=== PATIENT | male | born 1945 | race Caucasian/White ===

== ENCOUNTER → 2016-12-08 | Outpatient (CLI) | payer BC, MEDICARE | END | disposition home or self-care (01) | LOC: GMAB 09:19 | PROVIDERS: ATTEND Family Medicine | DX: N18.3 Chronic kidney disease, stage 3 (moderate) (principal) ==

== ENCOUNTER → 2016-12-20 | Outpatient (CLI) | payer BC, MEDICARE | END | disposition home or self-care (01) | LOC: LAB.O 07:15 | PROVIDERS: ATTEND Internal Medicine Cardiovascular Disease | DX: I25.10 Atherosclerotic heart disease of native coronary artery without angina pectoris (principal); E78.5 Hyperlipidemia, unspecified ==

== ENCOUNTER → 2017-01-31 | Outpatient (CLI) | payer BC, MEDICARE | LOC: GMAB 11:16 | PROVIDERS: ATTEND Family Medicine | DX: Z00.00 Encounter for general adult medical examination without abnormal findings (principal) ==

== ENCOUNTER → 2017-06-17 | Outpatient (CLI) | payer BC, MEDICARE | END | disposition home or self-care (01) | LOC: LAB.O 07:18 | PROVIDERS: ATTEND Internal Medicine Nephrology | DX: N18.3 Chronic kidney disease, stage 3 (moderate) (principal) ==

== ENCOUNTER → 2017-10-06 | Outpatient (CLI) | payer BC, MEDICARE | END | disposition home or self-care (01) | LOC: LAB.O 08:33 | PROVIDERS: ATTEND Internal Medicine Nephrology | DX: N18.3 Chronic kidney disease, stage 3 (moderate) (principal) ==

== ENCOUNTER → 2018-02-09 | Outpatient (CLI) | payer BC, MEDICARE | LOC: LAB.O 07:38 | PROVIDERS: ATTEND Internal Medicine Nephrology | DX: N18.3 Chronic kidney disease, stage 3 (moderate) (principal) ==

== ENCOUNTER → 2018-08-10 | Outpatient (CLI) | payer BC, MEDICARE | LOC: LAB.O 07:26 | PROVIDERS: ATTEND Internal Medicine Nephrology | DX: N18.4 Chronic kidney disease, stage 4 (severe) (principal) ==

== ENCOUNTER → 2018-08-10 | Outpatient (CLI) | payer BC, MEDICARE | LOC: LAB.O 12:56 | PROVIDERS: ATTEND Internal Medicine Cardiovascular Disease | DX: E78.2 Mixed hyperlipidemia (principal); E78.5 Hyperlipidemia, unspecified; I10 Essential (primary) hypertension; I25.10 Atherosclerotic heart disease of native coronary artery without angina pectoris; I35.0 Nonrheumatic aortic (valve) stenosis; I48.0 Paroxysmal atrial fibrillation; I48.2 Chronic atrial fibrillation; I48.91 Unspecified atrial fibrillation; I65.21 Occlusion and stenosis of right carotid artery; I65.29 Occlusion and stenosis of unspecified carotid artery; I73.9 Peripheral vascular disease, unspecified; I77.9 Disorder of arteries and arterioles, unspecified; R00.1 Bradycardia, unspecified; R00.2 Palpitations; R06.09 Other forms of dyspnea; Z68.29 Body mass index [BMI] 29.0-29.9, adult; Z95.0 Presence of cardiac pacemaker; Z95.810 Presence of automatic (implantable) cardiac defibrillator ==

== ENCOUNTER → 2018-09-04 | Outpatient (CLI) | payer BC, MEDICARE | LOC: LAB.O 10:21 | PROVIDERS: ATTEND Nurse Practitioner Acute Care | DX: E78.2 Mixed hyperlipidemia (principal); E78.5 Hyperlipidemia, unspecified; I10 Essential (primary) hypertension; I35.0 Nonrheumatic aortic (valve) stenosis; I48.0 Paroxysmal atrial fibrillation; I48.2 Chronic atrial fibrillation; I65.21 Occlusion and stenosis of right carotid artery; I73.9 Peripheral vascular disease, unspecified ==

== ENCOUNTER → 2018-09-27 | Outpatient (CLI) | payer BC, MEDICARE ==
--- NOTE | 2018-09-28 07:12 | CT ---
EXAM DESCRIPTION: Thoracic Spine CLINICAL HISTORY: 73 years, Male, RADICULOPATHY COMPARISON: Chest radiograph July 29, 2016 TECHNIQUE: CT of the thoracic spine was performed without IV contrast. This exam was performed according to our departmental dose-optimization program, which includes automated exposure control, adjustment of the mA and/or kV according to patient size and/or use of iterative reconstruction technique. FINDINGS: There is no vertebral body fracture or subluxation. Small anterior osteophyte is noted at multiple levels in the thoracic spine without disc space narrowing with facet joint hypertrophy. No central canal or neuroforaminal stenosis is seen in the level of the thoracic spine. Concentric disc bulging at L1-2 and L2-3 is noted without facet joint degeneration but probably results in at least mild bilateral neural foraminal stenosis. Emphysematous changes are present. There is a lobulated mass in the right lower lobe measuring just over 8 cm craniocaudal which abuts the posterior chest wall and is highly concerning for neoplasm. A second pleural-based nodule more posteriorly and inferiorly in the right lower lobe is only partially included on this exam. There is a solid mass in the right posterior abdominal wall just along the right side of the T12 body measuring 5.5 cm transverse by approximately 3 cm AP which results in partial destruction of the right 12th rib, also highly concerning for neoplasm. Incidentally noted is a 6 cm right renal cyst only partially visualized. IMPRESSION: Lobulated 8 cm right lower lobe mass with a smaller pleural-based nodule elsewhere in the right lower lobe only partially visualized, both highly suspicious for neoplasm. Biopsy is recommended. 5.5 cm mass involving the posterior right abdominal wall along the right side of the T12 body and right diaphragmatic hema resulting in partial destruction of the right 12th rib, also highly concerning for neoplasm and possibly explaining patient's symptoms. Emphysema. Mild degenerative changes at several levels in the thoracolumbar spine including considerable disc bulging at L1-2 and L2-3 resulting in mild bilateral neuroforaminal stenosis. The ordering physician was paged regarding these findings through the radiology director of medical services by me at the time of this dictation. Electronically signed by: Rashaad Saunders MD 09/28/2018 7:10 AM [employer]
== END ==
LOC: CT 14:01
PROVIDERS: ATTEND Family Medicine
DX: M51.26 Other intervertebral disc displacement, lumbar region (principal); R91.8 Other nonspecific abnormal finding of lung field; J43.9 Emphysema, unspecified

== ENCOUNTER → 2018-10-05 | Outpatient (CLI) | payer BC, MEDICARE ==
--- NOTE | 2018-10-05 15:53 | CT ---
EXAM DESCRIPTION: Abdomen Biopsy CT : Computed Tomography. CLINICAL HISTORY: 73 years Male RIGHT PLEURAL AND RIGHT LOWER LOBE MASS. POSTERIOR RIGHT ABDOMINAL WALL MASS on prior thoracic spine CT scan. COMPARISON: CT scan thoracic spine 09/27/2018. CT-guided lung and pleural biopsy today. TECHNIQUE: Patient placed prone on CT table, head toward the gantry, oblique positioning with right side up. Posterior right abdominal wall mass localized on helical axial images 2.5 x 2.5 mm. Table position recorded and repeat images with wire localizer on the right flank. Skin marked and prepped with sterile solution, sterile drape and 1% Xylocaine local anesthetic. Repeat imaging to confirm position of skin needle. Skin dariela with #11 scalpel. 17-gauge 13 cm Bard trocar and cannula introduce 4 cm and images confirmed good position relative to the mass. Trocar removed and Bard 18-gauge by 15 cm 2 stage biopsy gun introduced into the mass. 1.5 cm notch. 4 almost complete core samples were obtained. Patient complained of back pain due to positioning. No significant hemorrhaging. Patient tolerated the procedure well with no immediate complications. Spiral-axial scans at 2.5 x 2.5 mm intervals through the abdomen And pelvis after the procedure. Patient kept in prone position. Coronal and sagittal 2.0 mm reconstructions. No IV or oral contrast. Total DLP: Less than 288 mGy - cm. This exam was performed according to our departmental dose-optimization program which includes automated exposure control, adjustment of the mA and/or kV according to patient size and/or use of iterative reconstruction technique; to reduce radiation dose to as low as reasonably achievable (ALARA). FINDINGS: Abdominal Wall/Back Soft Tissues: Soft tissue mass with long axis almost 5 cm abutting and possibly invading the lateral hema of the right hemidiaphragm. Mass also involving the basilar medial right lung and pleura, with superior extent less than 3 cm from the inferior extent of the right lung pleural mass also biopsied. Orthogonal dimension at the level of T12 vertebral body is 3.9 cm. Dimension perpendicular to the long axis of the lumbar spine is 4.1 cm. Radiolucent appearance of the right 12th rib head and proximal angle and appearance of cortical loss suggest invasion of the rib. The mass is also abutting a large cyst on the posterior right kidney. The mass may be invading right posterior paraspinal muscles, but not invading the T12 thoracic vertebral body. No calcifications in the mass. Upper Abdominal organs: Calcifications in the spleen. Small calcifications in the liver. Stomach not distended. Adrenal glands negative. Pancreas/Gallbladder/Ducts: Vascular calcifications abutting the pancreas. Gallbladder visualized. Normal caliber of the duct. Kidneys: Multiple cysts in the right kidney with some kidney cyst density between post 15 and +20. Smooth margins. Perinephric stranding appears physiologic with no fluid. 5 mm stone inferior collecting system along with a 4 mm stone at the same level. No obstruction. 3 mm calcification in the inferior collecting system of the left kidney. 2 cm radiodense cyst or mass [place] +41. Other larger cysts with typical fluid density. Minimal right perirenal fluid. Otherwise no fatty stranding or fascial thickening. No hydronephrosis on the left and no left hydroureter.. Mesentery: No free fluid or free air. Aorta: Atherosclerotic calcification throughout with no aneurysm. Small Bowel: Normal caliber with no air-fluid levels. Terminal Ileum/Cecum: Slight distention by gas. Appendix visualized. Normal density of surrounding fat. Colon: No obstruction. Small diverticula with no complications. Spine: Spondylosis at multiple levels with dextroscoliosis. Pelvic organs: Prostate gland abutting the seminal vesicles and urinary bladder. No fluid in the pelvis. IMPRESSION: 1. Mass extending from the inferior medial right pleura to the right hema of the hemidiaphragm and right posterior medial abdominal wall and paraspinal soft tissues. Probable invasion of the medial right 12th rib. Greatest diameter [address] guided percutaneous core needle biopsy of this mass. Please see above details. 2. No other masses seen on this noncontrast CT scan of the abdomen and pelvis. Lack of IV contrast limits the study. Minimal fluid in the inferior right pararenal space may be secondary to biopsy. Multiple cysts bilateral kidneys. One dense cyst inferior left kidney may contain milk of calcium with well-defined uniform margins. Bilateral intrarenal stones with no evidence of obstruction. Atherosclerotic changes in the abdominal aorta. Spondylosis. Advanced atherosclerotic disease of the aorta with no aneurysm. Minimal diverticulosis of the distal colon with no complications. Electronically signed by: Nicko Potts MD 10/05/2018 3:52 PM SENIOR ADVOCATE
--- NOTE | 2018-10-05 16:23 | CT ---
EXAM DESCRIPTION: Lung Biopsy CT : Computed Tomography. CLINICAL HISTORY: 73 years Male Low Back and Mid Back Pain Not Responding to Pain Management. Mass in the Right Medial Lower Lobe and Pleura and Mass in the Junction of the Pleura Diaphragm and Right Paraspinal Muscles of the Upper Abdomen Seen on Prior Thoracic CT Scan. COMPARISON: CT-guided biopsy of abdominal wall mass on this visit. CT scan of the thoracic spine without contrast 09/27/2018. TECHNIQUE: Spiral-axial scans at 5.0 x 5.0 mm intervals through the lungs and thorax without IV contrast, patient supine. 2.5 x 5.0 mm lung algorithm axial reconstructions. 2.5 x 5.0 Mm reconstructions. Total Exam DLP: 1220.96 mGy-cm. This exam was performed according to our departmental dose-optimization program which includes automated exposure control, adjustment of the mA and/or kV according to patient size and/or use of iterative reconstruction technique; to reduce radiation dose to as low as reasonably achievable (ALARA). Nodule measurements under 10 mm are given as mean value of 3 axes diameters. Patient placed prone on CT table, head toward the gantry, oblique positioning with right side up. Posterior right medial pleural wall mass localized on helical axial images 2.5 x 2.5 mm. Table position recorded and repeat images with wire localizer on the right posterior chest wall. Skin marked and prepped with sterile solution, sterile drape and 1% Xylocaine local anesthetic. Repeat imaging to confirm position of skin needle. Skin dariela with #11 scalpel. 17-gauge 13.5 cm Bard trocar and cannula introduce 5 cm and images confirmed good position relative to the mass. Trocar removed and Bard 18-gauge by 15 cm 2 stage biopsy gun core needle, with 1.5 cm notch, introduced into the mass. 4 almost complete core samples were obtained and placed in formalin. Patient complained of back pain due to positioning. No significant hemorrhaging. FINDINGS: Lungs and large airways: Dilated airspaces in a predominantly centrilobular pattern more prominent blebs and bullae in the upper lung palma compared to the lower lung palma. A bilobed mass with spiculated margins measuring 2.5 x 2.0 x 1.6 cm is abutting the posterior pleura in the recess of the right lower lobe on lung axial image 101. Larger mass abutting the pleura of the medial superior segment of the right lower lobe and medial basal segment of the right lower lobe. Largest axis abutting the pleura is 6.6 cm. Orthogonal measurement extending into the right lower lobe is 4.5 cm. Masses seen on lung axial sequence 4, images 67-98. Craniocaudal dimension of the mass paralleling the spine is 7.8 cm. The mass is partially spiculated and partially lobulated margins as well as circumscribed margins with heterogeneous density. Air density within the mass after the biopsy. No abnormal nodules bilaterally or mass in the left lung.. Pleural spaces: Mass abutting the right lower lobe pleural-based previously described. No pneumothorax postbiopsy. Mediastinum and Mercedes: Evaluation limited due to lack of IV contrast no large soft tissue masses. Enlarged reactive appearing subcarinal lymph nodes with short axis 2.2 and 2.1 cm.. Great vessels and Heart: Evaluation limited due to lack of IV contrast. Scans and coronary artery calcifications. Pacing wires. Soft tissues of neck base, axillae, and chest wall: Evaluation limited due to lack of IV contrast. Heterogeneous density in the thyroid gland. Osseous structures: Spondylosis in the included thoracic spine. Arthrosis bilateral sternoclavicular joints. Minimal arthrosis in the right glenohumeral joint. IMPRESSION: 1. Successful, CT-guided percutaneous fine-needle core biopsy of mass in the right lower lobe and pleura abutting the medial posterior recess of the right lower lobe. Appearance of the mass is suggestive of primary malignancy more than metastatic lesion. No immediate complications. Pathology results pending at remote laboratory. 2. Possibly a second primary mass or metastasis more inferior and lateral abutting the pleura at the base of the right lower lobe. 3. Enlarged abnormal-appearing subcarinal lymph nodes, with short axis greater than 2 cm, could indicate mediastinal spread. Consider whole body PET CT imaging. Electronically signed by: Nicko Potts MD 10/05/2018 4:22 PM GRADUATE TEACHING ASSOCIATE
== END ==
LOC: CT 08:00
PROVIDERS: ATTEND Family Medicine
DX: C34.91 Malignant neoplasm of unspecified part of right bronchus or lung (principal); C49.4 Malignant neoplasm of connective and soft tissue of abdomen

== ENCOUNTER 2018-10-19 05:56 | Day surgery (SDC) | payer BC, MEDICARE ==
[2018-10-19] MEDS ORDERED: METOCLOPRAMIDE HCL INJ 10 MG/2 ML VIAL ONE (07:00)
[2018-10-19] MEDS ORDERED: DEXAMETHASONE INJ 10 MG/ML VIAL ONE (07:00)
[2018-10-19] MEDS ORDERED: SODIUM CHLORIDE 0.9% 50 ML VIAL ONE ×2 (07:00→07:12)
[2018-10-19] MEDS ORDERED: LIDOCAINE 1% 10 ML VIAL INJ ONE (07:00)
[2018-10-19] MEDS ORDERED: ePHEDrine SULF 50 MG/ML ONE (07:00)
[2018-10-19] MEDS ORDERED: ceFAZolin SODIUM 1 GM VIAL ONE (07:00)
[2018-10-19] MEDS ORDERED: diphenhydrAMINE HCL 50 MG/ML VIAL ONE (07:00)
[2018-10-19] MEDS ORDERED: PROPOFOL 200 MG/20 ML VIAL IV ONE (07:00)
[2018-10-19] MEDS ORDERED: raNITIdine HCL INJ 25 MG/ML VIAL ONE (07:00)
[2018-10-19] MEDS ORDERED: LACTATED RINGERS 1,000 ML ONE (07:01)
[2018-10-19] MEDS ORDERED: SODIUM BICARBONATE VIAL 50 MEQ/50 ML VIAL ONE (07:09)
[2018-10-19] MEDS ORDERED: LIDOCAINE 1% 50 ML VIAL INJ ONE (07:09)
[2018-10-19] MEDS ORDERED: HEPARIN SODIUM 100 U/ML 5 ML SYG IV ONE ×2 (07:09→07:11)
[2018-10-19] MEDS ORDERED: MIDAZOLAM INJ 5 MG/5 ML VIAL ONE (07:47)
[2018-10-19] MEDS ORDERED: fentaNYL CITRATE INJ 50 MCG/ML AMP ONE ×2 (07:48→08:25)
[2018-10-19] MEDS ORDERED: ELECTROLYTE-A 1,000 ML IVS ONE (08:44)
--- NOTE | 2018-10-19 10:11 | OP ---
DATE OF PROCEDURE: 10/19/18 PREOPERATIVE DIAGNOSIS: 1. 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 POSTOPERATIVE DIAGNOSIS: 1. 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 PROCEDURE: 1. Insertion of right subclavian venous access port. SURGEON: Malcolm Sanches MD. CHIEF INTERNAL AUDITOR: None. ANESTHESIA: Local infiltration of 1% lidocaine with bicarb and IV sedation by Anesthesia. INDICATION: The patient is a 73-year-old male who was found to have squamous cell carcinoma of the right lung with metastasis to the abdominal wall posteriorly. He has been seen by Dr. Jerod Oneal, oncology, and they plan to begin chemotherapy on Tuesday. He was brought to the Surgical Suite today for insertion of right subclavian venous access port after the risks, benefits and alternatives to the procedure were discussed and accepted. FINDINGS: First the guidewire and then the catheter in position in the superior vena cava. Post procedure chest x-ray is pending. PROCEDURE: The patient was brought to the Surgical Suite and placed in the supine position. The patient was prepped and draped in the usual sterile manner. A surgical time-out was taken and he had been given 2 grams of Ancef. At this point, the infraclavicular area was infiltrated with local anesthesia and a 22-gauge needle was introduced under the clavicle and venous blood was easily aspirated. At this point, an 18-gauge thin wall needle was introduced in the same direction. Venous blood was aspirated. The guidewire was introduced to 25 cm with no ectopy identified. At this point, the needle was removed. A towel was placed over the field and fluoroscopy was used to identify the guidewire in good position. At this time, a port pocket was formed, first with infiltration of anesthesia and then with a sharp knife and electrocautery along with some blunt dissection. When hemostasis was noted to be adequate, the port was placed in the pocket and the catheter was tunneled from the port placement to the insertion site, which had been opened also with a #15 blade. When this was done, the port was sutured in place in the port pocket with two 4-0 Prolene simple sutures. The subcutaneous tissues were then reapproximated with interrupted 3-0 Vicryl sutures at the port pocket. The catheter was then cut to appropriate length. The dilator introducer was introduced over the guidewire and the guidewire and dilator were removed. The catheter was introduced through the introducer and the introducer was peeled away in the normal manner. When this was done, a towel was placed over the field. Again, fluoroscopy was used to identify the catheter in good position. At this point, the port was accessed with the Perales needle. Blood was easily aspirated. It was then flushed with heparinized saline and then was heplocked serially. When this was done, the skin edges were approximated with 4-0 Vicryl subcuticular sutures, benzoin and Steri-Strips. Sterile pressure dressings were applied. The patient was awakened and taken to the Ambulatory Unit in stable condition. Estimated blood loss was less than 25 mL. All sponge, needle and instrument counts were correct. #[id number] MTDD
--- NOTE | 2018-10-19 10:16 | RAD ---
EXAM DESCRIPTION: Chest,1 View CLINICAL HISTORY: Dyspnea. Postoperative respiratory evaluation FINDINGS/ IMPRESSION: Comparison 07/29/2016 Cardiac pacemaker. Cardiomegaly with vascular congestion. Lung volumes are low with mild basilar atelectasis. No edema, alveolar consolidation or effusion. Right subclavian Port-A-Cath distal tip in the superior vena cava. No pneumothorax Electronically signed by: Charles Gray MD 10/19/2018 10:14 AM [facility]
[2018-10-19 11:26] VITALS: BP 112/57; TEMP 97; O2SAT 92
== END 2018-10-19 11:15 ==
LOC: AMB 05:56
PROVIDERS: ATTEND Surgery
DX: C34.91 Malignant neoplasm of unspecified part of right bronchus or lung (principal); I10 Essential (primary) hypertension; I25.10 Atherosclerotic heart disease of native coronary artery without angina pectoris; I44.0 Atrioventricular block, first degree; Z95.0 Presence of cardiac pacemaker; Z87.891 Personal history of nicotine dependence; Z86.711 Personal history of pulmonary embolism; Z96.659 Presence of unspecified artificial knee joint; Z88.8 Allergy status to other drugs, medicaments and biological substances; Z79.01 Long term (current) use of anticoagulants; Z79.82 Long term (current) use of aspirin; Z79.899 Other long term (current) drug therapy
CPT/HCPCS: 00532; 36415; 36561; 71045; 76000; 85025; A4216; C1788; J0690; J1100; J1200; J1642; J2250; J2765; J2780; J3010; J3490; J7120

== ENCOUNTER → 2018-10-25 | Outpatient (CLI) | payer BC, MEDICARE ==
--- NOTE | 2018-10-25 17:23 | CT ---
EXAM DESCRIPTION: Head w/wo Contrast: Computed Tomography. CLINICAL HISTORY: MALIGNANT NEOPLASM OF LOWER LOBE RIGHT BRONCHUS OF LUNG COMPARISON: CT-guided right lung biopsy 10/05/2018. TECHNIQUE: Spiral -axial scans through the head and brain at 5.0 mm intervals, without and with nonionic IV contrast. Axial 2.5 x 20 mm postcontrast reconstructions. Coronal and sagittal 2.0 mm reconstructions before and after IV contrast. No adverse reactions. Total Exam DLP: 1719.94 mGy-cm. This exam was performed according to our departmental CT dose-optimization program which includes automated exposure control, adjustment of the mA and/or kV according to patient size and/or use of iterative reconstruction technique; to reduce radiation dose to as low as reasonably achievable (ALARA). FINDINGS: No hemorrhage. No mass-effect and no midline shift. Normal contrast enhancement. Normal amos-white matter differentiation. Bilateral patchy regions of decreased white matter signal. No abnormal radiodense material in the brain parenchyma. No focal lesions demonstrating hemorrhage, mass effect, or abnormal contrast enhancement.Vascular calcifications anterior circulation; physiologic calcifications in the pineal gland and choroid plexus. No effacement or displacement of the ventricles, CSF spaces, or subdural spaces. Normal contrast enhancement. No extra axial fluid collection or hemorrhage. Prominent subarachnoid villi causing contrast defects in the straight sinus posteriorly and the right transverse sinus. No gross abnormalities of the bony calvarium. Rudimentary frontal sinuses. No unusual enhancement in the [place]. Prominent intracranial left ICA with possible stenosis of the intracranial segment. IMPRESSION: 1. No hemorrhage. No mass effect or midline shift.. No focal mass effect or enhancing lesions. Age-related white matter low-density could also be related to cerebral microvascular disease. 2. CT scans are insensitive for detecting small CVA's in the first 24 hours after onset. Evaluation of the brain stem is also limited. If symptoms persist, consider MRI scan of the brain with diffusion imaging. Electronically signed by: Nicko Potts MD 10/25/2018 5:22 PM [employer]AND SURVEYING MANAGER
== END ==
LOC: CT 14:26
PROVIDERS: ATTEND Internal Medicine Hematology & Oncology
DX: C34.31 Malignant neoplasm of lower lobe, right bronchus or lung (principal)

== ENCOUNTER → 2019-01-03 | Outpatient (CLI) | payer BC, MEDICARE ==
--- NOTE | 2019-01-03 14:19 | CT ---
EXAM DESCRIPTION: Abdomen w/Contrast (accession [id number]), Chest w/Contrast (accession [id number]) CLINICAL HISTORY: MALIGNANT NEOPLASM OF LOWER LOBE RIGHT BRONCHUS LUNG COMPARISON: CTA chest December 02, 2018. TECHNIQUE: CT of the chest and abdomen was performed with IV contrast. This exam was performed according to our departmental dose-optimization program, which includes automated exposure control, adjustment of the mA and/or kV according to patient size and/or use of iterative reconstruction technique. FINDINGS: CT chest: A Mediport device is present in the right anterior chest wall without apparent complication. A dual-lead cardiac pacemaker remains in place. Coronary artery calcifications. No thoracic aortic aneurysm or dissection. The main pulmonary artery is not dilated. No thyroid nodule. An enlarged, centrally necrotic subcarinal lymph node measures 2.7 cm short axis diameter, slightly decreased in size from the prior study. A slightly enlarged right hilar lymph node measures 13 mm short axis diameter, also slightly decreased in size from the prior study. No new mediastinal or additional hilar adenopathy. No esophageal wall thickening. No pleural or pericardial effusion. The central airways are clear. Emphysematous changes are noted. 5.5 x 3.6 cm pleural-based right lower lobe mass, decreased in size from December 02, when it measured 6.5 x 4.5 cm. A small satellite nodule also in the right lower lobe is also slightly decreased in size from the prior study. A pleural-based mass in the far posterior medial aspect of the right lung base measures 4.6 x 1.9 cm diameter on today's exam, slightly decreased from the prior study when it measured 5.3 x 2.8 cm. The mass likely invades the right diaphragmatic hema and and right posterior chest wall, resulting in destruction of the right 12th rib. There are several small nodules in the left upper lobe, the largest measuring 9 mm diameter (series 8 image 54), new from the prior study. A subcentimeter nodule in the left lower lobe seen on the previous study is not well visualized on the current exam. No additional lung nodule. Partially united right third rib fracture posteriorly is not acute. No new fracture or pneumothorax. No lytic or sclerotic bone lesion. CT ABDOMEN: Minimal calcification in the abdominal aorta without aneurysm or dissection. No retroperitoneal or mesenteric adenopathy. No ascites. There are a few tiny calcified splenic granulomata. The liver, spleen, pancreas and adrenals are otherwise unremarkable. No adrenal nodule. Bilateral renal cysts are noted with a few round lesions in both kidneys of intermediate density or two small to characterize but also likely representing cysts. Tiny right renal calculi without obstruction. No calcified gallstone. Visualized portions of the small bowel are unremarkable. Colon diverticulosis is only partially visualized without diverticulitis. No lytic or sclerotic bone lesion. IMPRESSION: Pleural-based right lower lobe mass with satellite nodule, slightly decreased in size from November,. Mediastinal and right hilar adenopathy, also slightly decreased in size from the prior exam. Several small noncalcified nodules in the left upper lobe measuring up to 9 mm diameter, new from the prior study and concerning for neoplasm. Slight interval decrease in size of a pleural-based mass in the far posterior medial right lung base likely involving the right diaphragmatic hema and right posterior chest wall with 12th rib destruction. Significant interval decrease in size of a small nodule seen in the left lower lobe on the prior exam. No evidence of metastatic disease in the abdomen. Colonic diverticulosis, partially visualized without diverticulitis. Electronically signed by: Rashaad Saunders MD 01/03/2019 2:16 PM CDT
== END ==
LOC: CT 08:00
PROVIDERS: ATTEND Internal Medicine Hematology & Oncology
DX: C34.31 Malignant neoplasm of lower lobe, right bronchus or lung (principal); R59.9 Enlarged lymph nodes, unspecified; K57.30 Diverticulosis of large intestine without perforation or abscess without bleeding; Z95.0 Presence of cardiac pacemaker

== ENCOUNTER → 2019-02-21 | Outpatient (CLI) | payer BC, MEDICARE ==
--- NOTE | 2019-02-21 09:43 | CT ---
EXAM DESCRIPTION: Head w/Contrast CLINICAL HISTORY: MALIGNANT NEOPLASM OF RT LOWER LOBE COMPARISON: Previous CT head without and with contrast October 25, 2018 TECHNIQUE: CT brain is performed prior to and following IV administration of routine adult dose of nonionic iodinated IV contrast. FINDINGS: Ventricles and sulci are unremarkable on the precontrast images. There is no hemorrhage or mass. White matter abnormalities are consistent with chronic microvascular ischemic changes with stable pattern compared to previous study. The calvarium is unremarkable. The visualized paranasal sinuses and the mastoids are clear. After IV contrast, normal enhancement of intracranial vessels. Focal enhancing lesion in the high right parietal lobe is seen involving the amos matter with adjacent white matter edema. Findings are consistent with small metastasis 1.2 cm in size. This is new compared to the previous study in October 2018 no additional enhancing foci in the supratentorial or infratentorial regions of the brain. IMPRESSION: Postcontrast images show new enhancing right parietal lobe lesion 1.2 cm with mild surrounding white matter edema consistent with a metastasis. This exam was performed according to our departmental dose-optimization program, which includes automated exposure control, adjustment of the mA and/or kV according to patient size and/or use of iterative reconstruction technique. Electronically signed by: Da Angulo MD 02/21/2019 9:41 AM CDT
--- NOTE | 2019-02-21 15:43 | CT ---
EXAM DESCRIPTION: Chest w/Contrast CLINICAL HISTORY: 73 years, Male, MALIGNANT NEOPLASM OF LOWER LOBE, RIGHT BRONCHUS OR LUNG COMPARISON: Previous CT chest January 03, 2019 TECHNIQUE: Thin-section noncontrast axial CT images are obtained according to our protocol. Reconstructed MPR images are created and reviewed as well. FINDINGS: Lungs: Right lower lobe paraspinous mass with extrapleural infiltration now measures 6.4 x 3.9 x 6.6 compared to 5.4 x 3.7 x 6.8 on the previous study. More peripheral extension is seen with pleural or extrapleural thickening up to 1.1 cm now compared to 5 mm in thickness previously. Findings are consistent with increased size of the tumor. Nodular satellite lesion in the posterior segment right lower lobe now measures 2.4 x 1.8 cm compared to 2.1 x 1.2 cm on the previous exam. 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 Pleural thickening extends inferiorly into the posterior pulmonary sulcus with right paraspinous mass anteriorly displacing the posterior diaphragmatic hema with bone destruction of the right lateral aspect of lower thoracic vertebrae. This now measures 6 x 4.8 cm. This was not entirely included on previous CT chest. Large subcarinal metastatic deposit now measures 4.4 x 2.8 cm. An enlarged node in the left pulmonary hilum measures 1.5 cm. Prominent node in the right pulmonary hilum measures approximately 7 mm short axis dimension. Compared to previous study, subcarinal mass measured 4.6 x 2.8 cm. No significant change. Mediastinum: Lymph nodes are normal in size. Port-A-Cath on the right. Cardiac pacer on the left. Normal vascular contours. Heart size is normal with no pericardial effusion. Chest wall/axilla: No mass or adenopathy. Anterior chest wall mass is intercostal and overlies the upper portion of the right lobe of the liver. This measures 3.2 x 2.2 cm on the present study compared to 2 x 0.9 cm on the previous exam. Lower neck/supraclavicular: No mass or adenopathy. Upper abdomen: See separate report for CT abdomen findings. Coronal and sagittal reformatted images confirm the findings. IMPRESSION: Right lower lobe mass consistent with primary bronchogenic carcinoma overall slightly larger. Increased size of anterior lower right chest wall mass and right paraspinous mass. This exam was performed according to our departmental dose-optimization program, which includes automated exposure control, adjustment of the mA and/or kV according to patient size and/or use of iterative reconstruction technique. Total DLP equals 1191.02 mGycm. Electronically signed by: Da Angulo MD 02/21/2019 3:41 PM CDT
--- NOTE | 2019-02-21 16:29 | CT ---
EXAM DESCRIPTION: CT ABDOMEN WITH CONTRAST CLINICAL HISTORY: MALIGNANT NEOPLASM OF RT LOWER LOBE COMPARISON: Previous CT abdomen with contrast January 03, 2019 TECHNIQUE: CT of the abdomen is performed during IV bolus administration of 100 mL Isovue 300. Oral contrast media is administered as well. FINDINGS: Masses with surrounding lymphangitic malignant infiltration of the right lower lobe. In the right paraspinous region at the T12 level, there is partial destruction of the proximal rib mild large tumor mass in the paraspinous soft tissues which displaces the posterior diaphragm anteriorly. This measures 5.8 x 4.5 cm with peripheral rim enhancement and central necrosis. Previously this mass measured 4.5 x 3.4 cm. Increasing soft tissue metastasis. Another anterior chest wall intercostal metastasis has also increased in size with indentation of the anterior right liver capsule. This measures 2 x 3.3 cm. Previously this was so small it was not appreciated and the previous measurement retrospectively was 1.8 x 0.7 cm. Liver is normal in size and parenchymal appearance. Sludge or noncalcified stones in the dependent portion of the gallbladder. Correlate with sono findings. Multiple renal cysts bilaterally. Small bilateral renal calculi as noted on previous study. No obstructive uropathy. Mild ectasia of the infrarenal abdominal aorta without significant sized aneurysm. Maximal aortic diameter measures 2.6 cm suggesting the need for follow-up imaging in five years. Mild ectasia of the left common iliac artery 1.7 cm. Spleen, pancreas, and kidneys are otherwise unremarkable. There is no retroperitoneal or mesenteric lymphadenopathy. No acute appearing inflammation, free air or free fluid observed. Coronal and sagittal reformatted images confirm the findings. 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 This exam was performed according to our departmental dose-optimization program, which includes automated exposure control, adjustment of the mA and/or kV according to patient size and/or use of iterative reconstruction technique. Electronically signed by: Da Angulo MD 02/21/2019 4:26 PM CDT
== END ==
LOC: CT 09:00
PROVIDERS: ATTEND Internal Medicine Hematology & Oncology
DX: C34.31 Malignant neoplasm of lower lobe, right bronchus or lung (principal); C79.89 Secondary malignant neoplasm of other specified sites